=== PATIENT | male | born 2000 | race African-American/Black ===

== ENCOUNTER 2021-10-18 11:33 | Emergency (ER) | payer MEDICAID, SELFPAY ==
--- NOTE | ~2021-10-18 | US_ITS ---
EXAMINATION: US SCROTUM with Doppler CLINICAL INFORMATION: Severe left-sided testicular pain. COMPARISON: None TECHNIQUE: A sonogram of the scrotum was performed assessing matson-scale appearance and color Doppler flow. Spectral Doppler analysis of the arterial and venous flow were performed in the testes bilaterally. FINDINGS: RIGHT: Right testicle measures 4.5 x 2.6 x 3.0 cm, volume 18.1 mL. No focal testicular parenchymal lesions are visualized. Spectral Doppler analysis of the arterial and venous flow is normal in the right testis. Right epididymal head is normal in size. Large cyst is seen inferior to the right testis measuring 3.1 x 2.1 x 3.1 cm. No right hydrocele or varicocele is seen. Right epididymal Doppler flow is normal. LEFT: Left testicle measures 4.0 x 2.1 x 3.6 cm, volume 15.8 mL. No focal testicular parenchymal lesions are visualized. Spectral Doppler analysis of the arterial and venous flow is normal in the left testis. Left epididymal head is normal in size. There is a small left hydrocele but no varicocele is seen. Left epididymal Doppler flow is increased. US/US scrotum doppler IMPRESSION: 1. Slight increase in vascularity involving the left epididymis which could be related to epididymitis. 2. There is a 3.1 cm cyst inferior to the right testes. 3. Flow in both testicles is symmetric without evidence of torsion.
--- NOTE | ~2021-10-18 | US_ITS ---
EXAMINATION: US SCROTUM CLINICAL INFORMATION: Severe left-sided scrotal pain. COMPARISON: None TECHNIQUE: A sonogram of the scrotum was performed assessing matson-scale appearance and color Doppler flow. Spectral Doppler analysis of the arterial and venous flow were performed in the testes bilaterally. FINDINGS: RIGHT: Right testicle measures 4.5 x 2.6 x 3.0 cm, volume 18.1 mL. No focal testicular parenchymal lesions are visualized. Spectral Doppler analysis of the arterial and venous flow is in the right testis. Right epididymal head is normal in size. No right hydrocele or varicocele is seen. Right epididymal Doppler flow is normal. LEFT: Left testicle measures 4.0 x 2.1 x 3.6 cm, volume 15.8 mL. No focal testicular parenchymal lesions are visualized. Spectral Doppler analysis of the arterial and venous flow is in the left testis. Left epididymal head is normal in size. Small left hydrocele. Increased heterogeneity. Vascularity is seen in the epididymal tail and to a lesser extent in the head. Cyst versus hydrocele adjacent to the right testis measuring 3.1 x 3.1 x 2.1 cm. US/US scrotum IMPRESSION: 1. No intratesticular abnormality bilaterally. 2. Left epididymal findings suggest mild left epididymitis with small left hydrocele which may be reactive. 3. Cyst adjacent to the right testicle could represent an epididymal tail cyst demonstrating benign features.
[2021-10-18 11:38] VITALS: BP 128/77; BP 132/84; PULSE 51; PULSE 83; RESP 18; TEMP 35.9; O2SAT 96; O2SAT 99; BMI 20.1
--- NOTE | 2021-10-18 11:43 | ED_ITS ---
HPI - Male Genitourinary General Chief complaint: Urogenital-Male Stated complaint: scrotal pain per ems Time Seen by Provider: 10/18/21 11:35 Source: patient Mode of arrival: EMS Limitations: other (poor historian) History of Present Illness Complaint: testicle pain Onset (ago): minute(s) (abrupt onset prior to arrival ) Duration: progressively worsening Location: left testicle Radiation: left inguinal region Severity: severe Quality: stabbing Relieving factors: none Exacerbating factors: palpation and movement Context: other (denies staff state it started out of nowhere) Associated symptoms: Reports denies other symptoms Related Data Allergies Allergy/AdvReac Type Severity Reaction Status Date / Time amoxicillin Allergy Unknown Unknown Uncoded 10/18/21 11:35 Review of Systems Review of Systems: Constitutional : No Weight loss, No Fever, No Chills ENT/Mouth : No sore throat, No Rhinorrhea Eyes: No Swelling, No Redness Cardiovascular : No Chest Pain, No SOB, NoEdema Respiratory : No Cough, No Sputum, No Wheezing Gastrointestinal : no Nausea, no Vomiting, no Diarrhea, positive abdominal Pain, No Hematochezia, No Melena Genitourinary : No Dysuria, No Urinary Frequency, No Hematuria, No Urgency , pos left testicular pain Musculoskeletal : No joint pain, No Myalgias, No Joint Swelling Skin : No Skin Lesions, No rash Neuro : No Weakness, No Numbness, No Dizziness, No Headache Psych : No Anxiety/Panic, No Depression Heme/Lymph: No Bruising, No Lymphadenopathy Endocrine : No Polyuria, No Polydipsia All other systems reviewed and are negative. [facility] Past Medical History Attestation statement: The following information was validated with the patient. Medical History (Updated 10/18/21 @ 12:22 by Shabnam Juarez DO) Psychosis Social History Social History (Updated 10/18/21 @ 11:54 by Shabnam Juarez DO) Patient Tobacco Use Status: Tobacco use Unknown Substance Use Type: Hallucinogens and Marijuana Advance Directives: No Advance Directives Information Provided: No Physical Exam Vital Signs: Vital Signs: Last Vital Signs Temp 96.7 F L 10/18/21 11:38 Pulse 51 10/18/21 11:38 Resp 18 10/18/21 11:38 BP 128/77 10/18/21 11:38 Pulse Ox 96 10/18/21 11:38 O2 Del Method 10/18/21 11:38 BMI result Body Mass Index 20.1 Appearance: Alert. Oriented X3. anxious in pain mild acute distress. Eyes: Pupils equal, round and reactive to light. ENT: Pharynx normal. Neck: Normal inspection. Neck supple. CVS: Normal heart rate and rhythm. Pulses normal. Respiratory: No respiratory distress. Breath sounds normal. Abdomen: Soft and nontender. no mass in L groin felt : moderate ttp along L scrotum no swelling no mass, higher riding L testicle, absent cremasteric on left side Skin: Skin warm and dry. Normal skin color. Normal skin turgor. Extremities: No lower extremity edema. No calf ttp Neuro: Oriented X 3. No motor deficit. No sensory deficit. Course Course Course Narrative: US flow in both testicles + epidydimitis MDM - Male Genitourinary MDM Narrative Medical decision making narrative: 20 yo male with hx of psychosis here with c/o abrupt onset L sided testicular pain without trauma - pain localized to the testicle itself will need labs US ordered on arrival, IV morphine and toradol for pain. Possible torsion dispo per results and findings. Lab Data Result diagrams: 10/18/21 11:51 10/18/21 13:02 Labs: Lab Results 10/18/21 10/18/21 10/18/21 Range/Units 11:51 11:51 11:51 WBC 8.9 (4.8-10.8) X10*3/uL RBC 5.15 (4.60-5.80) X10*6/uL Hgb 16.0 (14.0-18.0) g/dl Hct 46.5 (42.0-52.0) % MCV 90.3 (80.0-98.0) fL MCH 31.1 (27.0-33.0) pg MCHC 34.4 (31.0-36.0) g/dl RDW 11.5 (11.0-16.0) % Plt Count 200 (160-400) X10*3/uL MPV 10.6 (9.4-12.4) fL Immature Gran % (Auto) 0.3 (0.0-0.4) % Neut % (Auto) 70.9 (45-73) % Lymph % (Auto) 17.9 L (20-40) % [place] % (Auto) 5.4 (2-11) % Eos % (Auto) 4.4 H (0-4) % Baso % (Auto) 1.1 (0-2) % Lymph # (Auto) 1.6 (1.2-4.9) X10*3/uL [place] # (Auto) 0.5 (0.1-1.2) X10*3/uL Eos # (Auto) 0.4 (0.0-0.4) X10*3/uL Baso # (Auto) 0.1 (0.0-0.2) X10*3/uL Abs Immat Gran (auto) 0.03 (0.00-0.03) X10*3/uL Absolute Neuts (auto) 6.3 (2.0-8.3) x10*3/uL Absolute Nucleated RBC 0.000 (0.0-0.012) X10*3/uL Nucleated RBC % (auto) 0.0 (0.0-0.2) /100WBC PT 13.5 H (9.9-13.0) SEC INR 1.2 H (0.9-1.1) Sodium (135-145) mmol/L Potassium (3.3-5.1) mmol/L Chloride (96-108) mmol/L Carbon Dioxide (22-29) mmol/L Anion Gap (12-20) BUN (9-16) mg/dL Creatinine (0.5-1.4) mg/dL Estim Creat Clear Calc Estimated GFR Random Glucose (60-115) mg/dL Calcium (8.4-10.2) mg/dL Urine Color Urine Appearance Urine pH (5.0-8.0) Ur Specific [place] (1.005-1.025) Urine Protein (NEG-TRACE) MG/DL Urine Glucose (UA) (NEG) MG/DL Urine Ketones (NEG) MG/DL Urine Blood (NEG) Urine Nitrite (NEG) Ur Leukocyte Esterase (NEG) Urine RBC (0) /HPF Urine WBC (0-4) /HPF Ur Squamous Epith Cells /LPF Urine Bacteria /LPF COVID-19 (JYOTI) Negative (Negative) COVID-19 Clin Com See Note 10/18/21 10/18/21 Range/Units 13:01 13:02 WBC (4.8-10.8) X10*3/uL RBC (4.60-5.80) X10*6/uL Hgb (14.0-18.0) g/dl Hct (42.0-52.0) % MCV (80.0-98.0) fL MCH (27.0-33.0) pg MCHC (31.0-36.0) g/dl RDW (11.0-16.0) % Plt Count (160-400) X10*3/uL MPV (9.4-12.4) fL Immature Gran % (Auto) (0.0-0.4) % Neut % (Auto) (45-73) % Lymph % (Auto) (20-40) % [place] % (Auto) (2-11) % Eos % (Auto) (0-4) % Baso % (Auto) (0-2) % Lymph # (Auto) (1.2-4.9) X10*3/uL [place] # (Auto) (0.1-1.2) X10*3/uL Eos # (Auto) (0.0-0.4) X10*3/uL Baso # (Auto) (0.0-0.2) X10*3/uL Abs Immat Gran (auto) (0.00-0.03) X10*3/uL Absolute Neuts (auto) (2.0-8.3) x10*3/uL Absolute Nucleated RBC (0.0-0.012) X10*3/uL Nucleated RBC % (auto) (0.0-0.2) /100WBC PT (9.9-13.0) SEC INR (0.9-1.1) Sodium 136 (135-145) mmol/L Potassium 5.2 H (3.3-5.1) mmol/L Chloride 104 (96-108) mmol/L Carbon Dioxide 22 (22-29) mmol/L Anion Gap 15 (12-20) BUN 20 H (9-16) mg/dL Creatinine 1.18 (0.5-1.4) mg/dL Estim Creat Clear Calc 78.7 Estimated GFR > 60 Random Glucose 90 (60-115) mg/dL Calcium 8.9 (8.4-10.2) mg/dL Urine Color YELLOW Urine Appearance CLEAR Urine pH 7.0 (5.0-8.0) Ur Specific [place] 1.015 (1.005-1.025) Urine Protein NEG (NEG-TRACE) MG/DL Urine Glucose (UA) NEG (NEG) MG/DL Urine Ketones NEG (NEG) MG/DL Urine Blood NEG (NEG) Urine Nitrite NEG (NEG) Ur Leukocyte Esterase 1+ H (NEG) Urine RBC 0 (0) /HPF Urine WBC 1-4 (0-4) /HPF Ur Squamous Epith Cells NONE /LPF Urine Bacteria TRACE /LPF COVID-19 (JYOTI) (Negative) COVID-19 Clin Com Discharge Plan Discharge Clinical Impression: Epididymitis Patient Disposition: Xfer Other Transfer Details: [facility]ovanny Instructions: Epididymitis (ED) Additional Instructions: return to ED for any worsening symptoms or concerns no torsion on ultrasound, continue antibiotics DOXYCYCLINE 100mg BID for 10 days potassium mildly elevated at 5.2 recheck in 1 day - given IVF wear supportive underwear can follow up with a Urologist as needed
[2021-10-18] MEDS: ondansetron HCL 4 MG/2 ML VIAL IVPUSH (11:54)
[2021-10-18] MEDS: Morphine Sulfate 4 MG/ML CARTRIDGE IVPUSH (11:54)
[2021-10-18] MEDS: 0.9 % Sodium Chloride 1,000 ML 999 ML IV (11:55)
[2021-10-18] MEDS: Ketorolac Tromethamine 30 MG/ML VIAL IVPUSH (11:56)
[2021-10-18 11:58] LABS: MANUAL DIFF FLAG NO
[2021-10-18 12:06] LABS: INTERNATIONAL NORM RATIO 1.2 (0.9-1.1); Prothrombin Time 13.5 SEC (9.9-13.0)
[2021-10-18 12:07] LABS: Basophils Absolute Auto 0.1 X10*3/uL (0.0-0.2); Basophils Percent Auto 1.1 % (0-2); Eosinophils Absolute Auto 0.4 X10*3/uL (0.0-0.4); Eosinophils Percent Auto 4.4 % (0-4); Hematocrit 46.5 % (42.0-52.0); Imm Gran Abs Auto 0.03 X10*3/uL (0.00-0.03); Imm Gran Pct Auto 0.3 % (0.0-0.4); Lymphocytes Absolute Auto 1.6 X10*3/uL (1.2-4.9); Lymphocytes Percent Auto 17.9 % (20-40); Mean Corpuscular HGB Conc 34.4 g/dl (31.0-36.0); Mean Corpuscular Hemoglobin 31.1 pg (27.0-33.0); Mean Corpuscular Volume 90.3 fL (80.0-98.0); Mean Platelet Volume 10.6 fL (9.4-12.4); Monocytes Absolute Auto 0.5 X10*3/uL (0.1-1.2); Monocytes Percent Auto 5.4 % (2-11); Neutrophils Absolute Auto 6.3 x10*3/uL (2.0-8.3); Neutrophils Percent Auto 70.9 % (45-73); Platelet Count 200 X10*3/uL (160-400); Red Blood Count 5.15 X10*6/uL (4.60-5.80); Red Cell Distribution Width 11.5 % (11.0-16.0); White Blood Count 8.9 X10*3/uL (4.8-10.8)
[2021-10-18 12:17] LABS: COVID-19 Test Negative (Negative)
[2021-10-18 13:13] LABS: Appearance Urine CLEAR; Color Urine YELLOW; Glucose Urine UA NEG (NEG); Leukocyte Esterase Urine 1+ (NEG); Nitrite Urine NEG (NEG); Specific Gravity - Urine 1.015 (1.005-1.025); UACC Culture Trigger YES; Urine Blood NEG (NEG); Urine Ketones NEG (NEG); Urine Protein NEG (NEG-TRACE)
[2021-10-18] MEDS: cefTRIAXone sodium 1 GM, Lidocaine HCl 1 % MPF 2.1 ML IM (13:16)
[2021-10-18 13:23] LABS: Bacteria Urine TRACE /LPF; RBC Urine 0 /HPF (0)
[2021-10-18 13:28] LABS: Anion Gap 15 (12-20); Blood Urea Nitrogen 20 mg/dL (9-16); Calcium 8.9 mg/dL (8.4-10.2); Carbon Dioxide 22 mmol/L (22-29); Chloride 104 mmol/L (96-108); Creatinine Clr Calc Pharmacy 78.7; Estimated Glomerular Filt Rate > 60; Glucose Random 90 mg/dL (60-115); Potassium 5.2 mmol/L (3.3-5.1); Sodium 136 mmol/L (135-145)
[2021-10-18 15:09] LABS: CT PCR NOT DETECTED (Not Detect.); NG PCR NOT DETECTED (Not Detect.)
== END 2021-10-18 14:59 | disposition home or self-care (01) ==
PROVIDERS: Emergency Provider Emergency Medicine
DX: N45.1 Epididymitis (principal); N50.812 Left testicular pain; Z20.822 Contact with and (suspected) exposure to COVID-19
CPT/HCPCS: 76870; 80048; 81001; 85025; 85610; 87086; 87491; 87591; 87635; 93975; 96361; 96372; 96374; 96375; 99283; 99284; J0696; J1885; J2270; J2405

== ENCOUNTER 2024-02-07 20:08 | Inpatient (IN) | payer OTHER, SELFPAY ==
--- NOTE | ~2024-02-07 | XR_ITS ---
EXAMINATION: XR CHEST CLINICAL INFORMATION: Shortness of breath for 3 days. COMPARISON: None available. TECHNIQUE: Frontal view of the chest was obtained. FINDINGS: The lungs are clear. The cardiomediastinal silhouette is normal in size. There is no pleural effusion or pneumothorax. No acute osseous abnormality. XR/XR chest 1V IMPRESSION: No acute cardiopulmonary findings. Electronically signed by: Lenin Vazquez MD 02/07/2024 09:28 PM EDT
[2024-02-07 20:17] VITALS: BP 131/82; PULSE 107; O2SAT 98
[2024-02-07 20:21] VITALS: BP 129/75; PULSE 97; RESP 18; TEMP 36.6; O2SAT 94; BMI 21.3
[2024-02-07 20:32] VITALS: BP 129/75; PULSE 96; RESP 20; TEMP 36.7; O2SAT 92
--- NOTE | 2024-02-07 21:20 | ED_ITS ---
HPI - SOB/Dyspnea General Chief Complaint: Dyspnea Stated Complaint: sob Time Seen by Provider: 02/07/24 21:04 Source: patient and EMS Mode of arrival: EMS Limitations: no limitations History of Present Illness ED Provider: KELSIE VIRAMONTES Narrative: 23 yo male with PMH of mental health issues, asthma with prior admissions to hospitals in past for asthma has been at [facility] inpatient since Sunday notes 3 days of cough wheezing, brown sputum. He has INH at [facility] but no relief with it. He denies travel or fevers. He felt better with EMS duoneb. Also received IV steroids with EMS 125mg MD elicited complaint: shortness of breath Pertinent past history: asthma Onset (ago): day(s) (3) Context: recent illness Timing: progressively worsening Severity: moderate Exacerbating factors: exertion and coughing Relieving factors: bronchodilators Known history of: asthma Associated symptoms: cough, wheezing and sputum production Treatment prior to arrival: bronchodilator and other (IV solumedrol) Related Data Previous Rx's ?Medication ?Instructions ?Recorded doxycycline hyclate 100 mg tablet 100 mg PO BID 2 days #4 tabs 10/27/21 Allergies Allergy/AdvReac Type Severity Reaction Status Date / Time amoxicillin Allergy Unknown Unknown Uncoded 02/07/24 20:22 Review of Systems 2 Review of Systems: Constitutional : No Fever, No Chills ENT/Mouth : No Hoarseness, No sore throat, No Rhinorrhea Eyes: No Redness, No Discharge, No Vision Changes Cardiovascular : No Chest Pain, positive SOB, positive Dyspnea on Exertion, No Edema Respiratory : positive Cough, pos Sputum, positive Wheezing, Gastrointestinal : No Nausea, No Vomiting, No Diarrhea, No abdominal Pain Genitourinary : No Dysuria, No Hematuria Musculoskeletal : No joint pain, No Myalgias Skin : No rash Neuro : No Weakness, No Numbness, No Headache Psych : No anxiety, depression All other systems reviewed and are negative PMFSH Past Medical History Attestation statement: The following information was validated with the patient. Source: old records reviewed Medical History Asthma Psychosis Social History Social History Patient Tobacco Use Status: Tobacco use Unknown Substance Use Type: Hallucinogens and Marijuana Advance Directives: No Advance Directives Information Provided: No Do you have a plan to hurt others: No Plan Physical Exam 2 Vital Signs: Vital Signs: Last Vital Signs Temp 97.8 F 02/07/24 22:00 Pulse 104 H 02/07/24 22:00 Resp 22 H 02/07/24 22:00 BP 141/80 H 02/07/24 22:00 Pulse Ox 92 02/07/24 22:00 O2 Del Method Room Air 02/07/24 22:00 BMI result Body Mass Index 21.3 Appearance: Alert. Oriented X3. No acute distress. Eyes: Pupils equal, round and reactive to light. ENT: Pharynx normal. Neck: Normal inspection. Neck supple. CVS: Normal heart rate and rhythm. Pulses normal. Respiratory: No respiratory distress. Breath sounds diffuse exp wheezes heard throughout Abdomen: Soft and nontender. Skin: Skin warm and dry. Normal skin color. Normal skin turgor. Extremities: No lower extremity edema. No calf ttp Neuro: Oriented X 3. No motor deficit. No sensory deficit. Medications Administered Discontinued Medications Generic Name Dose Route Start Last Admin Trade Name Freq PRN Reason Stop Dose Admin Albuterol Sulfate 7.5 mg/ 10 mg 02/07/24 21:46 02/07/24 21:50 Albuterol Sulfate 2.5 mg INHALE 02/07/24 21:47 10 mg ONCE ONE Administration Albuterol Sulfate 7.5 mg/ 10 mg 02/07/24 23:22 02/07/24 23:25 Albuterol Sulfate 2.5 mg INHALE 02/07/24 23:23 10 mg ONCE ONE Administration Sodium Chloride 1,000 mls @ 999 mls/hr 02/07/24 21:10 02/07/24 21:40 Ns IV 02/07/24 22:10 999 mls/hr .Q1H1M ONE Administration Ceftriaxone Sodium 1 gm/ 50 mls @ 100 mls/hr 02/07/24 21:10 02/07/24 22:30 Sodium Chloride IV 02/07/24 21:39 Infused ONCE ONE Infusion Magnesium Sulfate 2 gm in 50 mls @ 150 mls/hr 02/07/24 21:10 02/07/24 22:22 Magnesium Sulfate/H2o IV 02/07/24 21:29 Infused ONCE ONE Infusion Medical Decision Making Medical Decision Making MDM Narrative: 23 yo male with PMH of mental health issues, asthma here with 3 days of wheezing, cough, sputum production at this time already given duoneb and steroids still wheezing will obtain viral panel, CXR, labs, IV ceftriaxone for presumed pneumonia. Will monitor O2 level and improvement with therapy in ED. Differential Diagnosis Differential Diagnoses: The differential diagnosis associated with the presentation includes asthma, bronchitis, pneumonia Admission/Observation Consideration of admission/observation: Escalation of care including admission/observation considered repeat nebs, tachypneic sats 90% at this time will need admission for further workup Consult Healthcare Provider Management of the patient was discussed with: Hospitalist (will admit) Lab Data MDM Lab Attestation statement: I reviewed the patient's lab results. 02/07/24 21:24 02/07/24 21:24 Labs: Lab Results 02/07/24 02/07/24 Range/Units 20:41 21:24 WBC 10.0 (4.8-10.8) X10*3/uL RBC 4.71 (4.60-5.80) X10*6/uL Hgb 15.1 (14.0-18.0) g/dl Hct 42.0 (42.0-52.0) % MCV 89.2 (80.0-98.0) fL MCH 32.1 (27.0-33.0) pg MCHC 36.0 (31.0-36.0) g/dl RDW 11.0 (11.0-16.0) % Plt Count 160 (160-400) X10*3/uL MPV 10.4 (9.4-12.4) fL Immature Gran % (Auto) 0.3 (0.0-0.4) % Neut % (Auto) 86.9 H (45-73) % Lymph % (Auto) 4.8 L (20-40) % [place] % (Auto) 3.9 (2-11) % Eos % (Auto) 3.6 (0-4) % Baso % (Auto) 0.5 (0-2) % Lymph # (Auto) 0.5 L (1.2-4.9) X10*3/uL [place] # (Auto) 0.4 (0.1-1.2) X10*3/uL Eos # (Auto) 0.4 (0.0-0.4) X10*3/uL Baso # (Auto) 0.1 (0.0-0.2) X10*3/uL Abs Immat Gran (auto) 0.03 (0.00-0.03) X10*3/uL Absolute Neuts (auto) 8.7 H (2.0-8.3) x10*3/uL Absolute Nucleated RBC 0.000 (0.0-0.012) X10*3/uL Nucleated RBC % (auto) 0.0 (0.0-0.2) /100WBC Sodium 137 (135-145) mmol/L Potassium 4.0 (3.3-5.1) mmol/L Chloride 106 (96-108) mmol/L Carbon Dioxide 21 L (22-29) mmol/L Anion Gap 14 (12-20) BUN 23 H (9-16) mg/dL Creatinine 0.98 (0.5-1.4) mg/dL Estim Creat Clear Calc 91.9 Estimated GFR > 60 Random Glucose 101 (60-115) mg/dL Lactic Acid 1.0 (0.5-2.0) mmol/L Calcium 9.2 (8.4-10.2) mg/dL Total Bilirubin 0.8 (0.0-1.0) mg/dL Direct Bilirubin 0.3 (0.0-0.5) mg/dL AST 31 (5-37) U/L ALT 28 (0-40) U/L Alkaline Phosphatase 66 (39-117) U/L Total Protein 7.5 (6.5-8.0) g/dL Albumin 4.6 (3.5-5.0) g/dL COVID-19 (JYOTI) Negative (Negative) COVID-19 Clin Com See Note Influenza Type A (YAMILET) Negative (Negative) Influenza Type B (YAMILET) Negative (Negative) Influenza A & B Note See Note Independent Interpretation I performed an independent interpretation of an: Plain X-Ray (?opacity LL) Radiology Impression Discussion of test interpretation with radiology: I have reviewed the radiologist's reading. Independent Historian Clinical information obtained from an independent historian. History obtained from or confirmed by: EMS External Record Review External record reviewed: Outpatient record Critical Care Time Critical Care Time Critical Care Time: Yes Total Critical Care Time: 60 Attestation: repeat hour long nebs, IV magnesium, intervention for hypoxia, admission I attest to this time spent taking care of the patient Discharge Plan Discharge Clinical Impression: Asthma with exacerbation, Hypoxia, Bronchitis Patient Disposition: Admitted As Inpatient Prescriptions: No Action doxycycline hyclate 100 mg tablet 100 mg PO BID 2 Days Qty: 4 0RF Print Language: Armenian
[2024-02-07 21:29] LABS: IDNOW Serial# 6674DD1D
[2024-02-07 21:30] LABS: COVID-19 Test Negative (Negative)
[2024-02-07 21:31] LABS: IDNOW Serial# 152EDE1D; Influenza A Negative (Negative); Influenza B2 Negative (Negative)
[2024-02-07 21:35] LABS: MANUAL DIFF FLAG NO
[2024-02-07 21:36] LABS: Basophils Absolute Auto 0.1 X10*3/uL (0.0-0.2); Basophils Percent Auto 0.5 % (0-2); Eosinophils Absolute Auto 0.4 X10*3/uL (0.0-0.4); Eosinophils Percent Auto 3.6 % (0-4); Hemoglobin 15.1 g/dl (14.0-18.0); Imm Gran Abs Auto 0.03 X10*3/uL (0.00-0.03); Imm Gran Pct Auto 0.3 % (0.0-0.4); Lymphocytes Absolute Auto 0.5 X10*3/uL (1.2-4.9); Lymphocytes Percent Auto 4.8 % (20-40); Mean Corpuscular Hemoglobin 32.1 pg (27.0-33.0); Mean Corpuscular Volume 89.2 fL (80.0-98.0); Mean Platelet Volume 10.4 fL (9.4-12.4); Monocytes Absolute Auto 0.4 X10*3/uL (0.1-1.2); Monocytes Percent Auto 3.9 % (2-11); Neutrophils Absolute Auto 8.7 x10*3/uL (2.0-8.3); Neutrophils Percent Auto 86.9 % (45-73); Platelet Count 160 X10*3/uL (160-400); Red Blood Count 4.71 X10*6/uL (4.60-5.80)
[2024-02-07] MEDS: Magnesium Sulfate/H2O 2 GM/50 ML PIGGYBACK IV (21:40)
[2024-02-07] MEDS: 0.9 % Sodium Chloride 1,000 ML 999 ML IV (21:40)
[2024-02-07 21:50] LABS: Alanine Aminotransferase 28 U/L (0-40); Albumin Level 4.6 g/dL (3.5-5.0); Alkaline Phosphatase 66 U/L (39-117); Anion Gap 14 (12-20); Aspartate Amino Transferase 31 U/L (5-37); Bilirubin Direct 0.3 mg/dL (0.0-0.5); Bilirubin Total 0.8 mg/dL (0.0-1.0); Blood Urea Nitrogen 23 mg/dL (9-16); Calcium 9.2 mg/dL (8.4-10.2); Carbon Dioxide 21 mmol/L (22-29); Chloride 106 mmol/L (96-108); Creatinine Clr Calc Pharmacy 91.9; Estimated Glomerular Filt Rate > 60; Glucose Random 101 mg/dL (60-115); Sodium 137 mmol/L (135-145); Total Protein 7.5 g/dL (6.5-8.0)
[2024-02-07] MEDS: Albuterol Sulfate 7.5 MG, Albuterol Sulfate (0.083%) 2.5 MG 10 MG INHALE ×2 (21:50→23:25)
[2024-02-07 21:54] VITALS: PULSE 101; RESP 20; O2SAT 93
[2024-02-07] MEDS: cefTRIAXone sodium 1 GM in 0.9 % Sodium Chloride 50 ML IV (21:56)
--- NOTE | 2024-02-07 21:58 | PC.NURSE ---
Pt calm and cooperative with all treatment and staff
[2024-02-07 22:00] VITALS: BP 141/80; PULSE 104; RESP 22; TEMP 36.6; O2SAT 92
[2024-02-07 23:25] VITALS: PULSE 104; RESP 22; O2SAT 95
[2024-02-08 00:44] VITALS: BP 118/67; PULSE 99; RESP 22; TEMP 36.8; O2SAT 95
[2024-02-08] MEDS: Azithromycin 500 MG in 0.9 % Sodium Chloride 250 ML 125 MG IV (00:46)
--- NOTE | 2024-02-08 00:47 | P.HPHOSP_ITS ---
History of Present Illness Date of Service: 02/08/24 Attending physician on admission: Nini Cruz Chief Complaint: Shortness on breath Galileo Patel is a 23 years old man with past medical history significant for asthma was brought to the emergency department due to worsening shortness on breath over the last couple of days associated with nonproductive cough, chest tightness and wheezing. The patient is a tobacco and marijuana smoker. He denied illicit drug use and drinks alcohol everyday 2 beers daily -last drink was 3 days ago. He is coming from [facility] and has been sectioned after he had a dispute with his mother. He denied suicidal thoughts. Patient received treatment with DuoNeb and Solu-Medrol 125 mg IV by EMS. In the ED, he was found to have tachypnea and tachycardia. He was placed on supplemental oxygen, however, oxygen saturation has been normal on room air. Blood workup showed no leukocytosis. Hemoglobin platelets are normal. There are no significant electrolyte imbalances. Renal and LFTs are normal. CXR is negative. ED tx: Ceftriaxone 1 g IV, azithromycin 500 mg IV Review of Systems 2 Review of Systems: All 12 systems were reviewed and normal except as noted in HPI. PMFSH Medical History Asthma Psychosis Social History Patient Tobacco Use Status: Tobacco use Unknown Substance Use Type: Hallucinogens and Marijuana Advance Directives: No Advance Directives Information Provided: No Do you have a plan to hurt others: No Plan Meds Allergies Allergy/AdvReac Type Severity Reaction Status Date / Time amoxicillin Allergy Unknown Unknown Uncoded 02/07/24 20:22 Active Medications: Current Medications Acetaminophen (Acetaminophen 325 Mg Tablet) 975 mg PO Q6H PRN PRN Reason: Pain, Mild (Pain Scale 1-3), fever or headache Enoxaparin Sodium (Enoxaparin Sodium 40 Mg/0.4 Ml Syringe) 40 mg SUBCUT Q24H MARCELINA Azithromycin 500 mg/ Sodium (Chloride) 250 mls @ 125 mls/hr IV ONCE ONE Stop: 02/08/24 01:20 Sodium Chloride (0.9 % Sodium Chloride Flush 3 Ml Syringe) 3 ml IVFLUSH QSHIFT MARCELINA Physical Exam 2 Vital Signs and Narrative: Vital Signs: Last Vital Signs Temp 97.8 F 02/07/24 22:00 Pulse 104 H 02/07/24 23:25 Resp 22 H 02/07/24 23:25 BP 141/80 H 02/07/24 22:00 Pulse Ox 92 02/07/24 22:00 O2 Del Method Room Air 02/07/24 22:00 BMI result Body Mass Index 21.3 Constitutional - Awake and Alert, No apparent distress. Nasal cannula in place. HEENT - PERRL, EOMI Heart - tachycardic. Normal rate. Lungs - Normal lung expansion, Normal respiratory effort, No respiratory distress. Tachypnea. End expiratory wheezes. Abdomen - NT / ND; +BS; No rebound or guarding - No CVA tenderness Extremities - no calf tenderness bilaterally, no swelling Musculoskeletal - Normal inspection, normal ROM Skin - Warm/Dry Neurological - Alert & oriented x3. No focal weakness grossly noted. Normal speech. Psychological - Appropriate affect Results Labs 02/07/24 21:24 02/07/24 21:24 Labs: Laboratory Results - last 24 hr 02/07/24 02/07/24 20:41 21:24 MCV 89.2 MCH 32.1 MCHC 36.0 RDW 11.0 Plt Count 160 MPV 10.4 Immature Gran % (Auto) 0.3 Neut % (Auto) 86.9 H Lymph % (Auto) 4.8 L [place] % (Auto) 3.9 Eos % (Auto) 3.6 Baso % (Auto) 0.5 Lymph # (Auto) 0.5 L [place] # (Auto) 0.4 Eos # (Auto) 0.4 Baso # (Auto) 0.1 Abs Immat Gran (auto) 0.03 Absolute Neuts (auto) 8.7 H Absolute Nucleated RBC 0.000 Nucleated RBC % (auto) 0.0 Anion Gap 14 Estim Creat Clear Calc 91.9 Estimated GFR > 60 Random Glucose 101 Lactic Acid 1.0 Calcium 9.2 Total Bilirubin 0.8 Direct Bilirubin 0.3 AST 31 ALT 28 Alkaline Phosphatase 66 Total Protein 7.5 Albumin 4.6 COVID-19 (JYOTI) Negative COVID-19 Clin Com See Note Influenza Type A (YAMILET) Negative Influenza Type B (YAMILET) Negative Influenza A & B Note See Note Imaging Radiologist's Impressions: Impressions Chest X-Ray 02/07/24 20:26 IMPRESSION: No acute cardiopulmonary findings. Electronically signed by: Lenin Vazquez MD 02/07/2024 09:28 PM EDT RP Assessment and Plan (1) Hypoxia: Status: Acute (2) Asthma with exacerbation: Qualifiers: Asthma persistence: persistent Asthma severity: moderate Qualified Code(s): J45.41 - Moderate persistent asthma with (acute) exacerbation Status: Acute (3) Bronchitis: Status: Acute Plan Galileo Patel is a 23 y/o man admitted with: * Acute asthma exacerbation; ? Left lower lobe infiltrate. Admit to hospitalist service. Telemetry. Pulse oximetry. Supplemental O2 to keep O2 sats > 90%. Continue empiric IV antibiotic therapy, bronchodilator therapy and IV steroids. * Sectioned 21. Continue sitter. Case management. * Tobacco and marijuana smoking. Patient has been advised to stop smoking both substances. DVT prophylaxis: Lovenox Code status: Full Patient will need hospitalization for at least 2 midnights for acute asthma exacerbation treatment with supplemental oxygen, bronchodilator therapy, IV antibiotics and IV steroids. Quality Stroke Does the patient have a stroke diagnosis?: No VTE Prior VTE?: No VTE Risk Level:: Medical - moderate - high VTE Device Contraindication: Treatment Not Indicated VTE Drug Contraindication: N/A - Med Ordered
[2024-02-08] MEDS: Enoxaparin Sodium 40 MG/0.4 ML SYRINGE SUBCUT (01:56)
[2024-02-08 04:26] VITALS: BMI 22.5
[2024-02-08] MEDS: Albuterol Sulfate (0.083%) 2.5 MG/3 ML VIAL.NEB INHALE (04:28)
[2024-02-08 06:59] LABS: Basophils Percent Auto 0.1 % (0-2); Hematocrit 39.8 % (42.0-52.0); Hemoglobin 14.1 g/dl (14.0-18.0); Imm Gran Abs Auto 0.02 X10*3/uL (0.00-0.03); Imm Gran Pct Auto 0.2 % (0.0-0.4); Lymphocytes Absolute Auto 0.3 X10*3/uL (1.2-4.9); Lymphocytes Percent Auto 4.1 % (20-40); MANUAL DIFF FLAG SCAN; Mean Corpuscular HGB Conc 35.4 g/dl (31.0-36.0); Mean Corpuscular Hemoglobin 31.8 pg (27.0-33.0); Mean Corpuscular Volume 89.8 fL (80.0-98.0); Mean Platelet Volume 10.3 fL (9.4-12.4); Monocytes Absolute Auto 0.2 X10*3/uL (0.1-1.2); Monocytes Percent Auto 2.9 % (2-11); Neutrophils Absolute Auto 7.7 x10*3/uL (2.0-8.3); Neutrophils Percent Auto 92.7 % (45-73); Platelet Count 173 X10*3/uL (160-400); Red Blood Count 4.43 X10*6/uL (4.60-5.80); Red Cell Distribution Width 11.1 % (11.0-16.0); SCAN SMEAR FLAG 1; White Blood Count 8.3 X10*3/uL (4.8-10.8)
[2024-02-08 07:19] LABS: SLIDE REVIEW VERIFIED
[2024-02-08 07:23] LABS: Anion Gap 14 (12-20); Blood Urea Nitrogen 13 mg/dL (9-16); Calcium 9.8 mg/dL (8.4-10.2); Carbon Dioxide 22 mmol/L (22-29); Chloride 107 mmol/L (96-108); Creatinine Clr Calc Pharmacy 106.2; Estimated Glomerular Filt Rate > 60; Glucose Random 131 mg/dL (60-115); Potassium 4.7 mmol/L (3.3-5.1); Sodium 138 mmol/L (135-145)
[2024-02-08] MEDS: Albuterol/Iprat 2.5/0.5MG 3 ML AMPUL.NEB INHALE ×2 (07:54→11:08)
[2024-02-08 07:56] VITALS: PULSE 99; RESP 22; O2SAT 95
[2024-02-08 07:57] VITALS: BP 137/77; PULSE 83; RESP 20; TEMP 36.2; O2SAT 99
--- NOTE | 2024-02-08 09:28 | PHA.MEDREC ---
Pharmacy Consult ? Medication Reconciliation Pharmacy has completed the medication reconciliation. Med rec completed with list from [facility]. Patient had recent Rx for potassium chloride but I called [facility] and they confirmed he was not getting potassium with them. I also called patient's mother Franca to confirm last dose of haldol injection which was on 01/26
[2024-02-08] MEDS: 0.9 % Sodium Chloride Flush 3 ML SYRINGE IVFLUSH (09:49)
[2024-02-08] MEDS: methylPREDNISolone Sod Succ 40 MG/ML VIAL IVPUSH (09:49)
--- NOTE | 2024-02-08 10:32 | MHC.CM.PN ---
Addendum entered by Dalia Hanks 02/08/24 13:10: PCP: RAFAEL BALLARD Addendum entered by Dalia Hanks 02/08/24 11:44: PT AWARE HE WILL DC BACK TO [facility] TODAY AT 1230 HOURS VIA BLS Addendum entered by Dalia Hanks 02/08/24 11:13: PCP @ [facility]OS[facility] MORALES Addendum entered by Dalia Hanks 02/08/24 10:42: PTS MOTHER AWARE HE WILL RETURN TO [facility] TODAY Addendum entered by Dalia Hanks 02/08/24 10:35: PER MD ROUNDS, PT IS CLEARED TO DC CM CALLED [facility] INTAKE AND CONFIRMED THEY STILL HAVE A BED FOR THIS PT THEY REQUEST A NURSE TO NURSE REPORT RN AWARE BLS TRANSPORT BOOKED WITH TA FOR 1230 Original Note: PT REPORTS HE LIVES AT HOME WITH HIS MOTHER AND IS INDEPENDENT WITH SELF CARE HE DENIES USE OF DME AT HOME PT IS ACTIVE WITH [facility] FOR MEDICATION ADMINISTRATION PT PROVIDED PERMISSION FOR CM TO CONTACT HIS MOTHER TO DISCUSS DC PLANNING HE REPORTS HE HOPES TO GO HOME AT [place] VIA [facility] CM CALLED PTS MOTHER, LOLIS [phone], WHO REPORTS SHE IS GOING TO ALLOW THE PT BACK HOME EVEN THOUGH SHE HAD INITIALLY TOLD [facility] SHE WOULD NOT, SHE SAYS SHE KNOWS HE DOES NOT WANT TO GO TO A [facility]ATION [facility] FACILITY, BUT SHE DOES NO WANT HIM TO GO TO A DAY PROGRAM LIKE [facility] IN [place]. SHE WOULD ALSO LIKE HIM TO SIGN A BEHAVIOR CONTRACT PRIOR TO RETURNING HOME SHE REPORTS SHE DOES NOT FEEL SHE CAN HAVE HIM RETURN PRIOR TO SUNDAY
--- NOTE | 2024-02-08 10:48 | P.DS_ITS ---
DS: Providers Provider Date of Service: 02/08/24 Date of admission: 02/08/24 00:44 Date of discharge: 02/08/24 Primary care physician: None Physician Attending physician on discharge: Edilson Baker Discharging clinician: Tamia Gracia DS: Diagnosis Discharge Diagnosis (1) Hypoxia: Status: Acute (2) Asthma with exacerbation: Status: Acute (3) Bronchitis: Status: Acute DS: Summary Hospital Course Hospital Course: From H&P on the day of admission Galileo Patel is a 23 years old man with past medical history significant for asthma was brought to the emergency department due to worsening shortness on breath over the last couple of days associated with nonproductive cough, chest tightness and wheezing. The patient is a tobacco and marijuana smoker. He denied illicit drug use and drinks alcohol everyday 2 beers daily -last drink was 3 days ago. He is coming from [facility] and has been sectioned after he had a dispute with his mother. He denied suicidal thoughts. Patient received treatment with DuoNeb and Solu-Medrol 125 mg IV by EMS. In the ED, he was found to have tachypnea and tachycardia. He was placed on supplemental oxygen, however, oxygen saturation has been normal on room air. Blood workup showed no leukocytosis. Hemoglobin platelets are normal. There are no significant electrolyte imbalances. Renal and LFTs are normal. CXR is negative. ED tx: Ceftriaxone 1 g IV, azithromycin 500 mg IV Acute asthma exacerbation. Patient was admitted to the hospital with acute asthma exacerbation requiring multiple breathing treatments and briefly requiring supplemental oxygen. Patient is afebrile with no leukocytosis. Chest x-ray showed no evidence of pneumonia. No sputum production. He was treated with steroids and breathing treatments and empiric antibiotics and his breathing has improved significantly. He is not currently requiring supplemental oxygen. COVID-19, influenza a and B negative. He has no wheezing on exam and no shortness of breath. Time Attestation Discharge Coordination Time (in mins): 32 Quality: Safe Use of Opioids Does Pt have an Active Cancer Diagnosis on the Problem List?: No Quality: Stroke Does the patient have a stroke diagnosis?: No Physical Exam Vital Signs: Vital Signs: Last Vital Signs Temp 97.2 F 02/08/24 07:57 Pulse 83 02/08/24 07:57 Resp 20 02/08/24 07:57 BP 137/77 02/08/24 07:57 Pulse Ox 99 02/08/24 07:57 O2 Del Method Room Air 02/08/24 07:57 O2 Flow Rate 2 02/08/24 00:44 BMI result Body Mass Index 22.5 Const: General: cooperative, comfortable, alert and awake Nutritional Appearance: average body habitus Orientation/consciousness: patient oriented x3 Resp: Other: no wheezing Effort & Inspection: normal respiratory effort, able to speak in complete sentences, no respiratory distress and no use of accessory muscles Cardio: Rate: regular rate GI: Inspection: No distended Palpation (GI): Soft to palpation Neuro: General: patient oriented x3, moves all extremities and CN's II-XI int act bilaterally DS: Data Data Completed and Pending Labs on day of discharge: Laboratory Results - last 24 hr 02/07/24 02/07/24 02/08/24 20:41 21:24 06:27 WBC 10.0 8.3 RBC 4.71 4.43 L Hgb 15.1 14.1 Hct 42.0 39.8 L MCV 89.2 89.8 MCH 32.1 31.8 MCHC 36.0 35.4 RDW 11.0 11.1 Plt Count 160 173 MPV 10.4 10.3 Immature Gran % (Auto) 0.3 0.2 Neut % (Auto) 86.9 H 92.7 H Lymph % (Auto) 4.8 L 4.1 L Mora % (Auto) 3.9 2.9 Eos % (Auto) 3.6 0.0 Baso % (Auto) 0.5 0.1 Lymph # (Auto) 0.5 L 0.3 L Mora # (Auto) 0.4 0.2 Eos # (Auto) 0.4 0.0 Baso # (Auto) 0.1 0.0 Abs Immat Gran (auto) 0.03 0.02 Absolute Neuts (auto) 8.7 H 7.7 Absolute Nucleated RBC 0.000 0.000 Nucleated RBC % (auto) 0.0 0.0 Smear Tech's Comments VERIFIED Sodium 137 138 Potassium 4.0 4.7 Chloride 106 107 Carbon Dioxide 21 L 22 Anion Gap 14 14 BUN 23 H 13 Creatinine 0.98 0.89 Estim Creat Clear Calc 91.9 106.2 Estimated GFR > 60 > 60 Random Glucose 101 131 H Lactic Acid 1.0 Calcium 9.2 9.8 D Total Bilirubin 0.8 Direct Bilirubin 0.3 AST 31 ALT 28 Alkaline Phosphatase 66 Total Protein 7.5 Albumin 4.6 COVID-19 (JYOTI) Negative COVID-19 Clin Com See Note Influenza Type A (YAMILET) Negative Influenza Type B (YAMILET) Negative Influenza A & B Note See Note Discharge Plan Discharge Patient Disposition: Xfer Psychiatric Hosp Referrals: Jovanny Medina [facility] [Outside] Physician,None [Primary Care Provider] - 1 Week Discharge Medications: New prednisone 20 mg tablet 40 mg PO DAILY 5 Days Qty: 10 0RF Continued venlafaxine 75 mg capsule,extended release 24hr 75 mg PO DAILY albuterol sulfate 2.5 mg /3 mL (0.083 %) solution for nebulization 2.5 mg inhalation Q4H PRN (Reason: wheezing) haloperidol decanoate 100 mg/mL solution 100 mg IM Q4W albuterol sulfate [Ventolin HFA] 90 mcg/actuation HFA aerosol inhaler 2 puff inhalation Q4H PRN (Reason: wheezing) acetaminophen 325 mg Tablet 650 mg PO Q4H PRN (Reason: fever/pain) loperamide 2 mg Capsule 2 mg PO Q6H PRN (Reason: Loose Stool) hydroxyzine pamoate 50 mg Capsule 50 mg PO Q4H PRN (Reason: Anxiety) melatonin 3 mg Tablet 3 mg PO BEDTIME PRN (Reason: Sleep) haloperidol 10 mg Tablet 10 mg PO BEDTIME ibuprofen 400 mg Tablet 400 mg PO Q8H PRN (Reason: tooth ache) benztropine 1 mg Tablet 1 mg PO BEDTIME docusate sodium 100 mg Capsule 100 mg PO BID PRN (Reason: Constipation) calcium carbonate 500 mg calcium (1,250 mg) Tablet,Chewable 500 mg PO Q4H PRN (Reason: Heartburn) alum-mag hydroxide-simeth 200-200-20 mg/5 mL Suspension 30 ml PO QID PRN (Reason: GI upset) Rx Instructions: administer between meals and at bedtime ondansetron 4 mg Tablet,Disintegrating 4 mg PO Q6H PRN (Reason: Nausea And Vomiting) Discharge Orders: Discharge Order (Routine); Ordered 02/08/24 Ordered By: Tamia Gracia Activity on Discharge: As tolerated Stand Alone Forms: Patient Portal Discharge page Print Language: [place]orese Care Plan Goals: see below Health Concerns: Acute asthma exacerbation Plan of Treatment: No evidence of pneumonia, no need for antibiotics, probable viral Complete 5 day course of oral steroids Continue baseline inhalers
[2024-02-08 11:09] VITALS: PULSE 83; RESP 20
[2024-02-08 11:34] VITALS: BP 136/71; PULSE 109; RESP 20; TEMP 36.3; O2SAT 95
[2024-02-08] MEDS: Venlafaxine HCl ER 75 MG CAP.ER.24H PO (12:05)
== END 2024-02-08 13:35 | DRG 141 ==
LOC: HO.ED 23:27 → HO.EDOVER 02-08 00:50 → HO.IMC 02-08 01:08
PROVIDERS: Admitting Provider Internal Medicine; Emergency Provider Emergency Medicine; PCP Pediatrics; Visit Provider Physician Assistant Medical
DX: J45.901 Unspecified asthma with (acute) exacerbation (principal); F17.210 Nicotine dependence, cigarettes, uncomplicated; Z20.822 Contact with and (suspected) exposure to COVID-19; Z71.6 Tobacco abuse counseling; Z79.899 Other long term (current) drug therapy
CPT/HCPCS: 36415; 71045; 80048; 80076; 83605; 85025; 87040; 87502; 87635; 94640; 99222; 99285; J0456; J0696; J1650; J2919; J3475

== ENCOUNTER → 2024-02-08 00:44 | Outpatient (BNV) | payer OTHER, SELFPAY | PROVIDERS: Admitting Provider Internal Medicine; Emergency Provider Emergency Medicine; Visit Provider Internal Medicine | DX: J45.41 Moderate persistent asthma with (acute) exacerbation (principal); R09.02 Hypoxemia | CPT/HCPCS: 99235; 99499 ==